=== PATIENT | female | born 1985 | race Asian ===

== ENCOUNTER 2019-06-15 07:38 | Inpatient (IN) | payer BC ==
[2019-06-15] MEDS ORDERED: Lidocaine 1% (PF) 30 ML VIAL ONE (07:53)
[2019-06-15] MEDS ORDERED: NS / Oxytocin 40 units/1000ml 0 ML ONE (07:53)
[2019-06-15] MEDS ORDERED: Oxytocin 10 UNITS/ML VIAL ONE ×2 (07:54→09:35)
[2019-06-15] MEDS ORDERED: Lidocaine 1% (PF) 30 ML VIAL SC PRN (08:45)
[2019-06-15] MEDS ORDERED: NS / Oxytocin 40 units/1000ml 1,000 ML IV PRN (08:45)
[2019-06-15] MEDS ORDERED: Ondansetron PF 4 MG/2 ML Vial IVP PRN ×2 (08:45→10:25)
[2019-06-15] MEDS ORDERED: Ibuprofen 800 MG TAB PO PRN (08:45)
[2019-06-15] MEDS ORDERED: hydrALAZINE 20 MG/ML VIAL SLOW IVP PRN ×2 (08:45→10:25)
[2019-06-15 09:21] VITALS: BMI 25.6
--- NOTE | 2019-06-15 10:00 | DN ---
DATE OF PROCEDURE: 06/15/2019 PREDELIVERY DIAGNOSES: Spontaneous labor at 38 weeks, multiparous patient, group B Streptococcus negative with imminent delivery upon presentation to the unit. POSTDELIVERY DIAGNOSES: Spontaneous labor at 38 weeks, multiparous patient, group B Streptococcus negative with imminent delivery upon presentation to the unit. Nuchal cord x1 and second-degree midline laceration. PROCEDURE PERFORMED: Spontaneous vaginal delivery at 0800 hours with second-degree midline laceration and vigorous male to nursery. Surgeon Isra Vasquez MD, present for precipitous and emergent stand-in for Dr. Bell. ANESTHESIA: 1% lidocaine 20 mL post-laceration for repair. ESTIMATED BLOOD LOSS: Less than 500 mL. COMPLICATIONS: None. SPECIMEN: Placenta delivered intact, not for pathology. FINDINGS: 1. Vigorous male , Apgars and weight pending to nursery. 2. Second-degree midline laceration without extension. 3. Correct counts at the end of the procedure. DISPOSITION: Routine recovery. DESCRIPTION OF PROCEDURE: The patient presented to the emergency room and was rolled onto the labor and delivery unit at approximately 0756 hours. She was with bag of water intact. She was prepped and set up for delivery. Amniotomy revealed clear fluid. Over the next contraction, the patient delivered spontaneously in a controlled manner with a nuchal cord that was easily reduced. The was placed on the maternal abdomen. After cessation of flow through the umbilical cord, it was clamped and cut. Usual cord blood sample was obtained. The placenta delivered spontaneously within 2 minutes of vaginal delivery. Inspection of the perineum revealed the findings as noted in the operative findings. A 20 mL of lidocaine was injected for anesthetic and a 2-[address] needle was used to repair the midline laceration in the usual manner. Further inspection revealed no other obstetric lacerations. The patient was entered into routine care. Job ID: [id number]
[2019-06-15] MEDS ORDERED: NS / Oxytocin 40 units/1000ml 1,000 ML IV SCH (10:25)
[2019-06-15] MEDS ORDERED: Bisacodyl 10 MG SUPP PR PRN (10:25)
[2019-06-15] MEDS ORDERED: Milk Of Magnesia 30 ML UDCUP PO PRN (10:25)
[2019-06-15] MEDS ORDERED: Benzocaine-Menthol 82.5 ML CAN TOP PRN (10:25)
[2019-06-15] MEDS ORDERED: Lanolin Ointment 7 GM TUBE TOP PRN (10:25)
[2019-06-15] MEDS ORDERED: Adacel (T-DAP) 0.5 ML SYRINGE IM ONE (10:25)
[2019-06-15 10:42] LABS: Hemoglobin 12.2 g/dL (12.0-16.0); Mean Corpuscular HGB CONC 33.7 g/dL (32.0-36.0); Mean Platelet Volume 7.4 fL (7.4-10.4); Platelet Count 256 thou/uL (130-400); RBC Distribution Width 11.8 % (11.5-14.5); Red Blood Cell (RBC) Count 3.93 mill/uL (4.20-5.40); White Blood Cell (WBC) Count 16.4 thou/uL (4.8-10.8)
[2019-06-15 11:11] LABS: Syphilis Antibody Nonreactive (Nonreactive); Syphilis Antibody Index 0.03 S/CO (<1.00 Non-Reactive)
[2019-06-15 11:20] LABS: HBSAg Index 0.29 S/CO (0-0.99); Hep B Surf Ag Non-Reactive S/CO (NonReactive)
[2019-06-15] MEDS: Ibuprofen 800 MG TAB PO SCH ×2 (15:07→21:53)
[2019-06-15] MEDS: Ferrous Sulfate 325 MG TAB PO SCH (17:24)
[2019-06-15] MEDS: Docusate Calcium (SURFAK) 240 MG CAP PO SCH (21:54)
[2019-06-16] MEDS: Ibuprofen 800 MG TAB PO SCH ×3 (06:10→21:43)
[2019-06-16 06:19] LABS: Hemoglobin 11.8 g/dL (12.0-16.0)
[2019-06-16] MEDS: Ferrous Sulfate 325 MG TAB PO SCH ×2 (09:12→16:58)
[2019-06-16] MEDS: Prenatal Vitamin 1 TAB PO SCH (09:13)
[2019-06-16] MEDS: Docusate Calcium (SURFAK) 240 MG CAP PO SCH ×2 (09:14→21:43)
[2019-06-17] MEDS: Ibuprofen 800 MG TAB PO SCH (06:30)
[2019-06-17 07:57] VITALS: BP 100/65; TEMP 98
[2019-06-17] MEDS: Prenatal Vitamin 1 TAB PO SCH (09:05)
[2019-06-17] MEDS: Docusate Calcium (SURFAK) 240 MG CAP PO SCH (09:05)
[2019-06-17] MEDS: Ferrous Sulfate 325 MG TAB PO SCH (09:06)
== END 2019-06-17 11:30 | disposition home or self-care (01) | DRG 807 ==
LOC: L&D/OP 07:38 → L&D 08:25 → 3SW 12:00
PROVIDERS: ADMIT Obstetrics & Gynecology; ATTEND Obstetrics & Gynecology
PROC: 10E0XZZ Delivery of Products of Conception, External Approach (ICD-10-PCS; principal; 2019-06-15)
PROC: 0HQ9XZZ Repair Perineum Skin, External Approach (ICD-10-PCS; 2019-06-15)
DX: O69.81X0 Labor and delivery complicated by cord around neck, without compression, not applicable or unspecified (principal); Z37.0 Single live birth; Z3A.38 38 weeks gestation of pregnancy; O70.1 Second degree perineal laceration during delivery
CPT/HCPCS: 36415; 85014; 85018; 85027; 86780; 86850; 86900; 86901; 87340; 90715; 99285; J2001; J2590